=== PATIENT | female | born 1985 | race Caucasian/White ===

== ENCOUNTER 2016-06-05 12:22 | Emergency (ER) | payer MEDICAID, OTHER ==
[~2016-06-05] VITALS: Ht 154.9 cm; Wt 65.9 kg
[~2016-06-05 12:22] MED LIST: CYCL-36 PO; DICL50 PO
[2016-06-05 12:25] VITALS: BP 140/92; PULSE 84; RESP 14; TEMP 98.4; O2SAT 96
--- NOTE | 2016-06-05 13:55 | PD ---
HPI Chief Complaint: Skin Problem Time Seen by Provider: 13:53 Travel History International Travel<30 days: No Contact w/Intl Traveler<30days: No Traveled to known affect area: No History of Present Illness HPI 31-year-old female presents to the emergency room for evaluation of non-itchy, nonpainful rash to her entire body that began yesterday. Patient states she was having fevers as high as 104 over the past 3 days that were not coming down significantly with Tylenol Motrin. Fever finally broke yesterday and she has not had any today. At onset of fever she also had moderate sore throat. Denies any other cough or cold symptoms. Rash started about 4 days after fever. 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 She reports that they share drinks occasionally. PFSH Past Medical History Anxiety: Yes Depression: No Diminished Hearing: No Immunizations Current: Yes Tetanus Vaccination: < 5 Years Influenza Vaccination: No ?: Not Menopausal: Yes Past Surgical History Appendectomy: Yes Section: Yes (X 2) Gynecologic Surgery: Yes Hysterectomy: Yes Tonsillectomy: Yes Social History Alcohol Use: Yes Tobacco Use: Yes (1/2 PACK DAILY) Substance Use: No (RECOVERY SINCE 02/18/2008 BENZO ADDICTION PREV) Allergies-Medications (Allergen,Severity, Reaction): Coded Allergies: Amoxicillin (Verified Allergy, Severe, THROAT CLOSES, 06/05/16) Uncoded Allergies: NO NARCOTICS PT IN RECOVERY (Allergy, Unknown, 05/19/12) Reported Meds & Prescriptions Reported Meds & Active Scripts Active Active Prescriptions or Reported Medications Unobtainable Review of Systems Except as stated in HPI: all other systems reviewed are Neg Physical Exam Narrative GENERAL: Well-nourished, well-developed female in no acute distress. Afebrile. Ambulatory. SKIN: Warm and dry. Slightly raised maculopapular rash throughout entire body, most prominent on the abdomen in bilateral upper extremities. HEAD: Normocephalic. EYES: No scleral icterus. No injection or drainage. ENT: Mucosa pink and moist. Mild to moderate erythema without edema or exudates. No uvular edema. No uvular, palatal, or tonsillar deviation. Airway patent. Nasal turbinates appear normal without nasal blood, purulent drainage or septal hematoma. NECK: Supple, trachea midline. No JVD or lymphadenopathy. CARDIOVASCULAR: Regular rate and rhythm without murmurs, gallops, or rubs. RESPIRATORY: Breath sounds equal bilaterally. No accessory muscle use. Data Data Last Documented VS Vital Signs Date Time Temp Pulse Resp B/P Pulse Ox O2 Delivery O2 Flow Rate FiO2 06/05/16 12:25 98.4 84 14 140/92 96 Room Air Orders Monoscreen (06/05/16 13:28) Group A Rapid Strep Screen (06/05/16 13:28) Strep Culture (Group A) (06/05/16 13:40) Labs Laboratory Tests Test 06/05/16 13:40 Monoscreen NEG MDM Medical Decision Making Medical Screen Exam Complete: Yes Emergency Medical Condition: Yes Medical Record Reviewed: Yes Differential Diagnosis Scarlet fever versus viral exanthem versus mononucleosis Narrative Course 31-year-old female presents to the emergency room for evaluation of non-itchy, nonpainful, red, raised rash that has been present for the past 2 days. Patient had sore throat and fever prior to onset of symptoms. The symptoms have essentially resolved. She reports knowing someone with mononucleosis and works with children. Physical exam reveals slightly raised maculopapular rash throughout body most prominent on the abdomen. Rapid strep is negative. [place] screen is negative. Likely viral exanthem. Patient discharged with instructions to follow up with primary care physician and return for worsening symptoms. She understands and agrees to this plan. Diagnosis Primary Impression: Viral exanthem, unspecified Referrals: Primary Care Physician Patient Instructions: General Instructions, Viral Exanthem (ED) Additional Instructions: Rest and drink plenty of fluids. Take ibuprofen with food as directed, as needed for fever and pain. Follow-up with a primary care physician. Return to the emergency room for worsening symptoms. Scripts Unable to Obtain Active Prescriptions or Reported Meds Disposition: 01 DISCHARGE HOME Condition: Stable Jeanna Valdovinos Jun 05, 2016 13:55
== END 2016-06-05 14:54 | disposition home or self-care (01) ==
LOC: NEPB 12:22
DX: B09 Unspecified viral infection characterized by skin and mucous membrane lesions (principal); F17.200 Nicotine dependence, unspecified, uncomplicated; Z86.59 Personal history of other mental and behavioral disorders
CPT/HCPCS: 86308; 87081; 87880; 99283

== ENCOUNTER 2016-12-02 02:19 | Emergency (ER) | payer MEDICAID ==
[~2016-12-02] VITALS: Ht 154.9 cm; Wt 65.5 kg
[2016-12-02 02:22] VITALS: BP 110/75; PULSE 94; RESP 18; TEMP 97.6; O2SAT 98
[2016-12-02] MEDS ORDERED: DIAZ10 PO (02:33)
[2016-12-02] MEDS ORDERED: TRAM50TA PO (02:33)
[2016-12-02] MEDS ORDERED: SODIUM CHLORIDE 0.9% FLUSH 10 ML FLUSH IVF PRN (02:45)
--- NOTE | 2016-12-02 02:56 | PD ---
HPI Chief Complaint: Medical Clearance Time Seen by Provider: 02:41 Travel History International Travel<30 days: No Contact w/Intl Traveler<30days: No Traveled to known affect area: No History of Present Illness HPI Patient is a 31 year old female who presents to ER with EVAC as a Aparicio's Act. Patient reports that today is the one year, 6 month anniversary of her twin sisters as she committed suicide. Reports that her cousin called her today, asking her to write lyrtics on how she was feeling. Patient reports that she did write the lyrics which related to suicidal idealizations. Aparicio act states "message was very suggestive, but no direct threats of suicide's were observed." Patient denies suicidal or homicidal idealizations. Patient does admit to taking 4-10 mg Valium as well as 2- 25 mg tramadol today over the course of 9 hours. Reports that she is prescribed these medications and was told may have taken them a little to early. Reports that she has 2 children at home, reports no suicidal evaluations that time. Reports that this is all a misunderstanding. PFSH Past Medical History Anxiety: Yes Depression: No Diminished Hearing: No Immunizations Current: Yes Tetanus Vaccination: Unknown Influenza Vaccination: Yes ?: Not Menopausal: Yes Past Surgical History Appendectomy: Yes Section: Yes (X 2) Gynecologic Surgery: Yes Hysterectomy: Yes Tonsillectomy: Yes Social History Alcohol Use: Yes (OCCASSIONALLY) Tobacco Use: Yes (1/2 PACK DAILY) Substance Use: No (RECOVERY SINCE 02/18/2008 BENZO ADDICTION PREV) Allergies-Medications (Allergen,Severity, Reaction): Coded Allergies: Amoxicillin (Verified Allergy, Severe, THROAT CLOSES, 12/02/16) Avelox (Verified Allergy, Severe, 12/02/16) Uncoded Allergies: NO NARCOTICS PT IN RECOVERY (Allergy, Unknown, 05/19/12) Reported Meds & Prescriptions Reported Meds & Active Scripts Active Reported Tramadol (Tramadol HCl) 50 Mg Tab 25 Mg PO Q6H PRN Valium (Diazepam) 10 Mg Tab 10 Mg PO BID PRN Review of Systems General / Constitutional: No: Fever Eyes: No: Visual changes HENT: No: Headaches Cardiovascular: No: Chest Pain or Discomfort Respiratory: No: Shortness of Breath Gastrointestinal: No: Abdominal Pain Genitourinary: No: Dysuria Musculoskeletal: No: Pain Skin: No Rash Neurologic: No: Weakness Psychiatric: Positive: Depression, No: Suicidal Ideations, Homicidal Ideation Endocrine: No: Polydipsia Hematologic/Lymphatic: No: Easy Bruising Physical Exam Narrative GENERAL: No acute distress, nontoxic SKIN: Focused skin assessment warm/dry. HEAD: Atraumatic. Normocephalic. EYES: Pupils equal and round. No scleral icterus. No injection or drainage. ENT: No nasal bleeding or discharge. Mucous membranes pink and moist. NECK: Trachea midline. No JVD. CARDIOVASCULAR: Regular rate and rhythm. No murmur appreciated. RESPIRATORY: No accessory muscle use. Clear to auscultation. Breath sounds equal bilaterally. GASTROINTESTINAL: Abdomen soft, non-tender, nondistended. Hepatic and splenic margins not palpable. MUSCULOSKELETAL: No obvious deformities. No clubbing. No cyanosis. No edema. NEUROLOGICAL: Awake and alert. No obvious cranial nerve deficits. Motor grossly within normal limits. Normal speech. PSYCHIATRIC: Depressed mood Data Data Last Documented VS Vital Signs Date Time Temp Pulse Resp B/P Pulse Ox O2 Delivery O2 Flow Rate FiO2 12/02/16 03:43 78 18 107/72 98 Room Air 12/02/16 02:22 97.6 Orders Complete Blood Count With Diff (12/02/16 02:41) Comprehensive Metabolic Panel (12/02/16 02:41) Urinalysis - C+S If Indicated (12/02/16 02:41) Oximetry (12/02/16 02:41) Iv Access Insert/Monitor (12/02/16 02:41) Ecg Monitoring (12/02/16 02:41) Psych Screen (12/02/16 02:41) Sodium Chloride 0.9% Flush (Ns Flush) (12/02/16 02:45) Drug Screen, Random Urine (12/02/16 02:41) Alcohol (Ethanol) (12/02/16 02:41) Salicylates (Aspirin) (12/02/16 02:41) Tylenol (Acetaminophen) (12/02/16 02:41) Ed Urine Pregnancytest Poc (12/02/16 02:42) Labs Laboratory Tests Test 12/02/16 02:50 White Blood Count 6.7 TH/MM3 Red Blood Count 4.44 MIL/MM3 Hemoglobin 14.1 GM/DL Hematocrit 40.4 % Mean Corpuscular Volume 91.1 FL Mean Corpuscular Hemoglobin 31.7 PG Mean Corpuscular Hemoglobin 34.8 % Concent Red Cell Distribution Width 12.8 % Platelet Count 259 TH/MM3 Mean Platelet Volume 8.2 FL Neutrophils (%) (Auto) 43.6 % Lymphocytes (%) (Auto) 45.4 % Monocytes (%) (Auto) 4.8 % Eosinophils (%) (Auto) 5.1 % Basophils (%) (Auto) 1.1 % Neutrophils # (Auto) 2.9 TH/MM3 Lymphocytes # (Auto) 3.1 TH/MM3 Monocytes # (Auto) 0.3 TH/MM3 Eosinophils # (Auto) 0.3 TH/MM3 Basophils # (Auto) 0.1 TH/MM3 CBC Comment DIFF FINAL Differential Comment Urine Color LIGHT-YELLOW Urine Turbidity CLEAR Urine pH 6.5 Urine Specific [place] 1.003 Urine Protein NEG mg/dL Urine Glucose (UA) NEG mg/dL Urine Ketones NEG mg/dL Urine Occult Blood NEG Urine Nitrite NEG Urine Bilirubin NEG Urine Urobilinogen LESS THAN 2.0 MG/DL Urine Leukocyte Esterase NEG Urine RBC LESS THAN 1 /hpf Urine WBC LESS THAN 1 /hpf Urine Bacteria RARE /hpf Microscopic Urinalysis Comment CULT NOT INDICATED Sodium Level 140 MEQ/L Potassium Level 3.7 MEQ/L Chloride Level 107 MEQ/L Carbon Dioxide Level 25.6 MEQ/L Anion Gap 7 MEQ/L Blood Urea Nitrogen 11 MG/DL Creatinine 0.77 MG/DL Estimat Glomerular Filtration 86 ML/MIN Rate Random Glucose 87 MG/DL Calcium Level 8.6 MG/DL Total Bilirubin 0.2 MG/DL Aspartate Amino Transf 18 U/L (AST/SGOT) Alanine Aminotransferase 23 U/L (ALT/SGPT) Alkaline Phosphatase 97 U/L Total Protein 8.0 GM/DL Albumin 4.2 GM/DL Salicylates Level 1.9 MG/DL Urine Opiates Screen NEG Acetaminophen Level LESS THAN 2.0 MCG/ML Urine Barbiturates Screen NEG Urine Amphetamines Screen NEG Urine Benzodiazepines Screen POS Urine Cocaine Screen NEG Urine Cannabinoids Screen NEG Ethyl Alcohol Level 214 MG/DL MDM Medical Decision Making Medical Screen Exam Complete: Yes Emergency Medical Condition: Yes Interpretation(s) Vital Signs Date Time Temp Pulse Resp B/P Pulse Ox O2 Delivery O2 Flow Rate FiO2 12/02/16 02:22 97.6 94 18 110/75 98 Differential Diagnosis Suicidal evaluations, drug overdose, electrolyte abnormality,depression Narrative Course Patient is a 31-year-old female who presents to emergency room via EVAC as she was placed under Aparicio act for making suggestions of suicidal idealizations. Patient was placed on a toe closing machine tender upon arrival to ER. Tox screens ordered. Plan to observe in ER. Once medically cleared, will have patient seen by psych screener Kriss Brown DO Dec 02, 2016 02:56
[2016-12-02 03:00] VITALS: RESP 18; O2SAT 100
[2016-12-02 03:20] LABS: AMPHETAMINE, URINE NEG (NEG); BARBITURATES, URINE NEG (NEG); COCAINE, URINE NEG (NEG)
[2016-12-02 03:21] LABS: BACTERIA, URINE RARE /hpf; BLOOD, URINE NEG (NEG); GLUCOSE,URINE NEG (NEG); KETONE, URINE NEG (NEG); NITRITE,URINE NEG (NEG); PH, URINE 6.5 (5.0-8.5); URINE COLOR LIGHT-YELLOW (YELLW/STRAW)
[2016-12-02 03:22] LABS: AUTOMATED NEUTROPHIL # 2.9 TH/MM3 (1.8-7.7); BASOPHIL # 0.1 TH/MM3 (0-0.2); BASOPHIL % 1.1 % (0.0-2.0); COMMENT (UR) CULT NOT INDICATED; CULTURE IF INDICATED CULT NOT INDICATED; EOSINOPHIL # 0.3 TH/MM3 (0-0.4); EOSINOPHIL % 5.1 % (0.0-4.0); HEMATOCRIT 40.4 % (35.0-46.0); HEMO FLAGS DIFF FINAL; LYMPH % 45.4 % (9.0-44.0); LYMPHOCYTE # 3.1 TH/MM3 (1.0-4.8); MEAN CELL VOLUME 91.1 FL (80.0-100.0); MEAN CORPUSCULAR HEMOGLOBIN 31.7 PG (27.0-34.0); MEAN CORPUSCULAR HGB CONC 34.8 % (32.0-36.0); MONO % 4.8 % (0.0-8.0); NEUT % 43.6 % (16.0-70.0); PLATELET COUNT 259 TH/MM3 (150-450); RED BLOOD COUNT 4.44 MIL/MM3 (4.00-5.30); RED CELL DISTRIBUTION WIDTH 12.8 % (11.6-17.2); WHITE BLOOD COUNT 6.7 TH/MM3 (4.0-11.0)
[2016-12-02 03:42] LABS: ANION GAP 7 MEQ/L (5-15)
[2016-12-02 03:43] VITALS: BP 107/72; PULSE 78; RESP 18; O2SAT 98
[2016-12-02 04:16] LABS: ALKALINE PHOSPHATASE 97 U/L (45-117); ALT (GPT) 23 U/L (10-53); AST (GOT) 18 U/L (15-37); BICARBONATE 25.6 MEQ/L (21.0-32.0); BLOOD UREA NITROGEN 11 MG/DL (7-18); CHLORIDE 107 MEQ/L (98-107); GLOMERULAR FILTRATION RATE 86 ML/MIN (>89); POTASSIUM 3.7 MEQ/L (3.5-5.1); SODIUM (NA) 140 MEQ/L (136-145); TOTAL BILIRUBIN ADULT 0.2 MG/DL (0.2-1.0)
[2016-12-02 04:17] LABS: ACETAMINOPHEN LESS THAN 2.0 MCG/ML (10.0-30.0)
[2016-12-02 06:59] VITALS: BP 103/57; PULSE 92; RESP 16; O2SAT 98
[2016-12-02 10:01] VITALS: BP 104/70; PULSE 79; RESP 18; TEMP 98.6; O2SAT 97
[2016-12-02 11:13] VITALS: BP 104/70; PULSE 79; RESP 18; TEMP 98.6; O2SAT 97
--- NOTE | 2016-12-02 19:00 | PD ---
History of Present Illness Chief Complaint: Medical Clearance Time Seen by Provider: 18:00 Travel History International Travel<30 Days: No Contact w/Intl Traveler<30days: No Known affected area: No Legal Status Legal Status: Aparicio Act Aparicio Act Signed By: Lalito Heart History of Present Illness: This is a 31-year-old female brought in under a Aparicio act for apparently sending someone a Facebook message indicating she had taken a "bunch of pills" in a suicide attempt. The patient also told law enforcement officers that she was depressed because her twin sister committed suicide last year. Although the patient denied being suicidal at the time of the officers presence, she did report depression over the suicide of her sister and that she had consumed 4 Valium tablets and 2 tramadol pills patient was also noted to be positive for alcohol at the time she did this. Her text messages on Facebook continued to talk about suicide but again the patient was denying this to law enforcement. Upon interview, the patient is no longer intoxicated. She denies any suicidal or homicidal ideation, plan or intent. She is calm, pleasant and cooperative. She has no psychotic symptoms and her cognition is intact. She is verbally jacqueline for safety. She is competent to do so. PFSH Past Medical History Anxiety: Yes Depression: No Diminished Hearing: No Immunizations Current: Yes Tetanus Vaccination: Unknown Influenza Vaccination: Yes ?: Not Menopausal: Yes Past Surgical History Appendectomy: Yes Section: Yes (X 2) Gynecologic Surgery: Yes Hysterectomy: Yes Tonsillectomy: Yes Psychiatric History Psychiatric History Hx Psychiatric Treatment: None History of Inpatient Treatment: No Guns or firearms in home: No Social History Hx Alcohol Use: Yes (OCCASSIONALLY) Hx Tobacco Use: Yes (1/2 PACK DAILY) Hx Substance Use: No Substance Use Type: Benzos (Valium,Xanax) Other Substances Used: valium is for anxiety Hx of Substance Use Treatment: No Allergies-Medications (Allergen,Severity, Reaction): Coded Allergies: Amoxicillin (Verified Allergy, Severe, THROAT CLOSES, 12/02/16) Avelox (Verified Allergy, Severe, 12/02/16) Uncoded Allergies: NO NARCOTICS PT IN RECOVERY (Allergy, Unknown, 05/19/12) Reported Meds & Prescriptions Reported Meds & Active Scripts Active Reported Tramadol (Tramadol HCl) 50 Mg Tab 25 Mg PO Q6H PRN Valium (Diazepam) 10 Mg Tab 10 Mg PO BID PRN Review of Systems Except as stated in HPI: all other systems reviewed are Neg Exam Alert: Yes [place]: Person, Place, Date, Situation Mood: Calm Affect: Appropriate Speech: Clear, Logical Eye Contact: Normal Memory Intact: Immediate, Recent, Remote Insight/Judgement Adequate MDM Medical Decision Making Medical Record Reviewed: Yes Assessment/Plan This is a 31-year-old female who became intoxicated while grieving for the loss of her twin sister, 1 year ago. Patient obviously became depressed and likely suicidal. This physician spoke with the patient's nurse and reviewed her text messages on [employer]. The patient also admits to taking medications inappropriately, including tramadol and Valium. However, at this time she is not intoxicated and she is competent to contract for safety. This physician feels it would be counter therapeutic to antagonize her further and instead encouraged her to obtain help in the way of therapy and possibly antidepressant medication. As the patient is verbally jacqueline for safety, this physician feels she does not qualify for Aparicio act or inpatient psychiatric hospitalization at this time. Orders Complete Blood Count With Diff (12/02/16 02:41) Comprehensive Metabolic Panel (12/02/16 02:41) Urinalysis - C+S If Indicated (12/02/16 02:41) Oximetry (12/02/16 02:41) Iv Access Insert/Monitor (12/02/16 02:41) Ecg Monitoring (12/02/16 02:41) Psych Screen (12/02/16 02:41) Sodium Chloride 0.9% Flush (Ns Flush) (12/02/16 02:45) Drug Screen, Random Urine (12/02/16 02:41) Alcohol (Ethanol) (12/02/16 02:41) Salicylates (Aspirin) (12/02/16 02:41) Tylenol (Acetaminophen) (12/02/16 02:41) Ed Urine Pregnancytest Poc (12/02/16 02:42) Diet Regular Basic (12/02/16 Lunch) Diet Regular Basic (12/02/16 Dinner) Results Vital Signs Date Time Temp Pulse Resp B/P Pulse Ox O2 Delivery O2 Flow Rate FiO2 12/02/16 11:13 98.6 79 18 104/70 97 12/02/16 10:01 98.6 79 18 104/70 97 Room Air 12/02/16 06:59 92 16 103/57 98 Room Air 12/02/16 03:43 78 18 107/72 98 Room Air 12/02/16 03:00 18 100 Room Air 12/02/16 02:22 97.6 94 18 110/75 98 Laboratory Tests Test 12/02/16 02:50 White Blood Count 6.7 Red Blood Count 4.44 Hemoglobin 14.1 Hematocrit 40.4 Mean Corpuscular Volume 91.1 Mean Corpuscular Hemoglobin 31.7 Mean Corpuscular Hemoglobin 34.8 Concent Red Cell Distribution Width 12.8 Platelet Count 259 Mean Platelet Volume 8.2 Neutrophils (%) (Auto) 43.6 Lymphocytes (%) (Auto) 45.4 Monocytes (%) (Auto) 4.8 Eosinophils (%) (Auto) 5.1 Basophils (%) (Auto) 1.1 Neutrophils # (Auto) 2.9 Lymphocytes # (Auto) 3.1 Monocytes # (Auto) 0.3 Eosinophils # (Auto) 0.3 Basophils # (Auto) 0.1 CBC Comment DIFF FINAL Differential Comment Urine Color LIGHT-YELLOW Urine Turbidity CLEAR Urine pH 6.5 Urine Specific [place] 1.003 Urine Protein NEG Urine Glucose (UA) NEG Urine Ketones NEG Urine Occult Blood NEG Urine Nitrite NEG Urine Bilirubin NEG Urine Urobilinogen LESS THAN 2.0 Urine Leukocyte Esterase NEG Urine RBC LESS THAN 1 Urine WBC LESS THAN 1 Urine Bacteria RARE Microscopic Urinalysis Comment CULT NOT INDICATED Sodium Level 140 Potassium Level 3.7 Chloride Level 107 Carbon Dioxide Level 25.6 Anion Gap 7 Blood Urea Nitrogen 11 Creatinine 0.77 Estimat Glomerular Filtration 86 Rate Random Glucose 87 Calcium Level 8.6 Total Bilirubin 0.2 Aspartate Amino Transf 18 (AST/SGOT) Alanine Aminotransferase 23 (ALT/SGPT) Alkaline Phosphatase 97 Total Protein 8.0 Albumin 4.2 Salicylates Level 1.9 Urine Opiates Screen NEG Acetaminophen Level LESS THAN 2.0 Urine Barbiturates Screen NEG Urine Amphetamines Screen NEG Urine Benzodiazepines Screen POS Urine Cocaine Screen NEG Urine Cannabinoids Screen NEG Ethyl Alcohol Level 214 Diagnosis Primary Impression: Adjustment disorder with mixed disturbance of emotions and conduct Additional Impression: Alcohol abuse Departure Forms: Tests/Procedures Patient Instructions: General Instructions, Depression (ED), Grief and Loss (ED ), Abuse of Alcohol (ED) Additional Instructions: Please return to ED if your symptoms reappear Disposition: 01 DISCHARGE HOME Condition: Stable Problem Qualifiers Jorge Lerma MD Dec 02, 2016 19:00
== END 2016-12-02 18:57 | disposition home or self-care (01) ==
LOC: NEPE 02:19 → NEPJ 18:57
DX: F43.25 Adjustment disorder with mixed disturbance of emotions and conduct (principal); F41.9 Anxiety disorder, unspecified; F17.210 Nicotine dependence, cigarettes, uncomplicated; F10.10 Alcohol abuse, uncomplicated
CPT/HCPCS: 80053; 80307; 81001; 84703; 85025; 99283

== ENCOUNTER 2017-03-10 00:39 | Emergency (ER) | payer SELFPAY ==
[~2017-03-10] VITALS: Ht 165.1 cm; Wt 75.0 kg
[~2017-03-10 00:39] MED LIST changes: -CYCL-36 PO; +DIAZ10 PO; -DICL50 PO; +TRAM50TA PO
[2017-03-10 00:51] VITALS: BP 115/77; PULSE 104; RESP 18; TEMP 98.5; O2SAT 96
[2017-03-10 00:56] VITALS: BP 115/77; PULSE 104; RESP 18; TEMP 98.5; O2SAT 96
--- NOTE | 2017-03-10 01:03 | PD ---
HPI Chief Complaint: Alcohol/Drug Intoxication Time Seen by Provider: 00:51 Travel History International Travel<30 days: No Contact w/Intl Traveler<30days: No Traveled to known affect area: No History of Present Illness HPI The patient is a 31-year-old female who presents to the emergency department via police as a Aparicio act. According to the police affidavit the patient made statements that she wanted to run in a traffic on [address] According to the police affidavit the patient was aggressive, loud, and resistant and stated she was intoxicated. The patient was placed under a Aparicio act. She denies any suicidal ideation, homicidal ideation, hallucinations, or delusions. She denies any associated illicit drug use. She does state that her identical twin sister last year and April, she takes 9 as needed for anxiety at night. However, she denies any suicidal or homicidal ideation. She does admit to drinking alcohol tonight, son unable to quantify the amount of wine she drank. She denies any history of chronic psychiatric disorders. Symptoms are mild to moderate, possibly exacerbated by alcohol, and there are no current alleviating factors. PFSH Past Medical History Anxiety: Yes Depression: No Diminished Hearing: No Immunizations Current: Yes ?: Not Menopausal: Yes Past Surgical History Appendectomy: Yes Section: Yes (X 2) Gynecologic Surgery: Yes Hysterectomy: Yes Tonsillectomy: Yes Social History Alcohol Use: Yes (OCCASSIONALLY) Tobacco Use: Yes (1/2 PACK DAILY) Substance Use: No Allergies-Medications (Allergen,Severity, Reaction): Coded Allergies: amoxicillin (Unverified Allergy, Severe, THROAT CLOSES, 01/17/17) moxifloxacin (Unverified Allergy, Severe, 01/17/17) Uncoded Allergies: NO NARCOTICS PT IN RECOVERY (Allergy, Unknown, 05/19/12) Reported Meds & Prescriptions Reported Meds & Active Scripts Active Reported Tramadol (Tramadol HCl) 50 Mg Tab 25 Mg PO Q6H PRN Valium (Diazepam) 10 Mg Tab 10 Mg PO BID PRN Review of Systems Except as stated in HPI: all other systems reviewed are Neg General / Constitutional: No: Fever Cardiovascular: No: Chest Pain or Discomfort Respiratory: No: Shortness of Breath Gastrointestinal: No: Nausea, Vomiting, Abdominal Pain Psychiatric: Positive: Substance Abuse (alcohol use tonight), No: Depression, Suicidal Ideations, Disorder of Thought, Mood Disorder, Homicidal Ideation Physical Exam Narrative GENERAL: Awake, alert, somewhat intoxicated 31 year-old female who appears her stated age is in no acute respiratory distress. SKIN: Focused skin assessment warm/dry. HEAD: Atraumatic. Normocephalic. EYES: Pupils equal and round. No scleral icterus. No injection or drainage. ENT: No nasal bleeding or discharge. Mucous membranes pink and moist. NECK: Trachea midline. No JVD. CARDIOVASCULAR: Regular rate and rhythm. No murmur appreciated. RESPIRATORY: No accessory muscle use. Clear to auscultation. Breath sounds equal bilaterally. GASTROINTESTINAL: Abdomen soft, non-tender, nondistended. MUSCULOSKELETAL: No obvious deformities. No clubbing. No cyanosis. No edema. NEUROLOGICAL: Awake and alert. No obvious cranial nerve deficits. Motor grossly within normal limits. Normal speech. Nonfocal. Oriented 3. PSYCHIATRIC: Appears intoxicated. Data Data Last Documented VS Vital Signs Date Time Temp Pulse Resp B/P (MAP) Pulse Ox O2 Delivery O2 Flow Rate FiO2 03/10/17 00:56 98.5 104 18 115/77 (90) 96 Room Air Orders Orders Complete Blood Count With Diff (03/10/17 00:59) Comprehensive Metabolic Panel (03/10/17 00:59) Psych Screen (03/10/17 00:59) Drug Screen, Random Urine (03/10/17 00:59) Alcohol (Ethanol) (03/10/17 00:59) Labs Laboratory Tests Test 03/10/17 01:00 03/10/17 01:05 Urine Opiates Screen NEG Urine Barbiturates Screen NEG Urine Amphetamines Screen NEG Urine Benzodiazepines Screen POS Urine Cocaine Screen NEG Urine Cannabinoids Screen NEG White Blood Count 7.1 TH/MM3 Red Blood Count 4.37 MIL/MM3 Hemoglobin 14.0 GM/DL Hematocrit 41.1 % Mean Corpuscular Volume 94.1 FL Mean Corpuscular Hemoglobin 32.0 PG Mean Corpuscular Hemoglobin Concent 34.0 % Red Cell Distribution Width 13.6 % Platelet Count 224 TH/MM3 Mean Platelet Volume 7.9 FL Neutrophils (%) (Auto) 45.2 % Lymphocytes (%) (Auto) 43.8 % Monocytes (%) (Auto) 5.0 % Eosinophils (%) (Auto) 4.6 % Basophils (%) (Auto) 1.4 % Neutrophils # (Auto) 3.2 TH/MM3 Lymphocytes # (Auto) 3.1 TH/MM3 Monocytes # (Auto) 0.4 TH/MM3 Eosinophils # (Auto) 0.3 TH/MM3 Basophils # (Auto) 0.1 TH/MM3 CBC Comment DIFF FINAL Differential Comment Blood Urea Nitrogen 9 MG/DL Creatinine 0.78 MG/DL Random Glucose 99 MG/DL Total Protein 7.8 GM/DL Albumin 4.2 GM/DL Calcium Level 8.5 MG/DL Alkaline Phosphatase 92 U/L Aspartate Amino Transf (AST/SGOT) 27 U/L Alanine Aminotransferase (ALT/SGPT) 35 U/L Total Bilirubin 0.3 MG/DL Sodium Level 144 MEQ/L Potassium Level 3.6 MEQ/L Chloride Level 112 MEQ/L Carbon Dioxide Level 22.4 MEQ/L Anion Gap 10 MEQ/L Estimat Glomerular Filtration Rate 85 ML/MIN Ethyl Alcohol Level 265 MG/DL MDM Medical Decision Making Medical Screen Exam Complete: Yes Emergency Medical Condition: Yes Medical Record Reviewed: Yes Interpretation(s) Laboratory Tests Test 03/10/17 01:00 03/10/17 01:05 Urine Opiates Screen NEG Urine Barbiturates Screen NEG Urine Amphetamines Screen NEG Urine Benzodiazepines Screen POS Urine Cocaine Screen NEG Urine Cannabinoids Screen NEG White Blood Count 7.1 TH/MM3 Red Blood Count 4.37 MIL/MM3 Hemoglobin 14.0 GM/DL Hematocrit 41.1 % Mean Corpuscular Volume 94.1 FL Mean Corpuscular Hemoglobin 32.0 PG Mean Corpuscular Hemoglobin Concent 34.0 % Red Cell Distribution Width 13.6 % Platelet Count 224 TH/MM3 Mean Platelet Volume 7.9 FL Neutrophils (%) (Auto) 45.2 % Lymphocytes (%) (Auto) 43.8 % Monocytes (%) (Auto) 5.0 % Eosinophils (%) (Auto) 4.6 % Basophils (%) (Auto) 1.4 % Neutrophils # (Auto) 3.2 TH/MM3 Lymphocytes # (Auto) 3.1 TH/MM3 Monocytes # (Auto) 0.4 TH/MM3 Eosinophils # (Auto) 0.3 TH/MM3 Basophils # (Auto) 0.1 TH/MM3 CBC Comment DIFF FINAL Differential Comment Blood Urea Nitrogen 9 MG/DL Creatinine 0.78 MG/DL Random Glucose 99 MG/DL Total Protein 7.8 GM/DL Albumin 4.2 GM/DL Calcium Level 8.5 MG/DL Alkaline Phosphatase 92 U/L Aspartate Amino Transf (AST/SGOT) 27 U/L Alanine Aminotransferase (ALT/SGPT) 35 U/L Total Bilirubin 0.3 MG/DL Sodium Level 144 MEQ/L Potassium Level 3.6 MEQ/L Chloride Level 112 MEQ/L Carbon Dioxide Level 22.4 MEQ/L Anion Gap 10 MEQ/L Estimat Glomerular Filtration Rate 85 ML/MIN Ethyl Alcohol Level 265 MG/DL Differential Diagnosis Differential diagnosis includes alcohol intoxication, substance induced mood disorder, depressive disorder NOS, adjustment reaction, stress reaction, bipolar affective disorder. Narrative Course Labs are drawn and sent. Psychiatric evaluation was ordered. Tox screen is positive for benzodiazepines. Alcohol level is elevated at 265. Patient is medically clear to be evaluated by psychiatry. Disposition as per psych. Diagnosis Primary Impression: Substance induced mood disorder Additional Impression: Alcohol intoxication Qualified Codes: F10.920 - Alcohol use, unspecified with intoxication, uncomplicated Condition: Stable Richard Akers MD Mar 10, 2017 01:03
[2017-03-10 01:24] LABS: AUTOMATED NEUTROPHIL # 3.2 TH/MM3 (1.8-7.7); BASOPHIL # 0.1 TH/MM3 (0-0.2); BASOPHIL % 1.4 % (0.0-2.0); EOSINOPHIL # 0.3 TH/MM3 (0-0.4); EOSINOPHIL % 4.6 % (0.0-4.0); HEMATOCRIT 41.1 % (35.0-46.0); HEMO FLAGS DIFF FINAL; LYMPH % 43.8 % (9.0-44.0); LYMPHOCYTE # 3.1 TH/MM3 (1.0-4.8); MEAN CELL VOLUME 94.1 FL (80.0-100.0); NEUT % 45.2 % (16.0-70.0); PLATELET COUNT 224 TH/MM3 (150-450); RED BLOOD COUNT 4.37 MIL/MM3 (4.00-5.30); RED CELL DISTRIBUTION WIDTH 13.6 % (11.6-17.2); WHITE BLOOD COUNT 7.1 TH/MM3 (4.0-11.0)
[2017-03-10 01:36] LABS: ALT (GPT) 35 U/L (10-53); ANION GAP 10 MEQ/L (5-15); AST (GOT) 27 U/L (15-37); BICARBONATE 22.4 MEQ/L (21.0-32.0); BLOOD UREA NITROGEN 9 MG/DL (7-18); CHLORIDE 112 MEQ/L (98-107); GLOMERULAR FILTRATION RATE 85 ML/MIN (>89); POTASSIUM 3.6 MEQ/L (3.5-5.1); SODIUM (NA) 144 MEQ/L (136-145)
[2017-03-10 01:38] LABS: ALKALINE PHOSPHATASE 92 U/L (45-117); TOTAL BILIRUBIN ADULT 0.3 MG/DL (0.2-1.0)
[2017-03-10 01:55] LABS: ALCOHOL 265 MG/DL (0-5)
[2017-03-10 07:05] VITALS: BP 119/69; PULSE 80; RESP 16; O2SAT 98
[2017-03-10 12:36] VITALS: BP 110/65; PULSE 82; RESP 16; TEMP 98.2; O2SAT 98
[2017-03-10 18:17] VITALS: BP 116/77; PULSE 67; RESP 17; TEMP 98.6; O2SAT 97
[2017-03-10 22:06] VITALS: BP 105/59; PULSE 58; RESP 18; O2SAT 99
[2017-03-11 02:00] VITALS: BP 126/72; PULSE 57; RESP 17
[2017-03-11] MEDS ORDERED: FLUMAZENIL 0.5 MG/5 ML VIAL IV PUSH PRN (08:15)
[2017-03-11] MEDS ORDERED: LORazepam 1 MG TAB PO PRN (08:15)
[2017-03-11] MEDS ORDERED: LORazepam 2 MG/ML VIAL IV PUSH PRN ×4 (08:15)
[2017-03-11] MEDS ORDERED: LORazepam 2 MG TAB PO PRN (08:15)
[2017-03-11 08:38] VITALS: BP 135/90; PULSE 89; RESP 18; O2SAT 97
[2017-03-11] MEDS ORDERED: NICOTINE 21 MG/24 HR PATCH T-DERMAL ONE (10:45)
--- NOTE | 2017-03-11 12:35 | PD ---
Physical Exam Date Seen by Provider: Mar 11, 2017 Time Seen by Provider: 12:34 Narrative 31-year-old female previously Aparicio acted intoxicated who was medically cleared has been evaluated by psychiatric services and found to be psychiatrically stable for discharge. Patient is currently medically stable for discharge. Follow plan is as per psychiatrist. Please see their plan. Data Data Last Documented VS Vital Signs Date Time Temp Pulse Resp B/P (MAP) Pulse Ox O2 Delivery O2 Flow Rate FiO2 03/11/17 08:38 89 18 135/90 (105) 97 03/10/17 18:17 98.6 03/10/17 12:36 Nasal Cannula Orders Orders Complete Blood Count With Diff (03/10/17 00:59) Comprehensive Metabolic Panel (03/10/17 00:59) Psych Screen (03/10/17 00:59) Drug Screen, Random Urine (03/10/17 00:59) Alcohol (Ethanol) (03/10/17 00:59) Diet Regular Basic (03/10/17 Lunch) Diet Regular Basic (03/11/17 Breakfast) Alcohol Withdrawal Asmt-Ciwa ONCE (03/11/17 08:09) Flumazenil Inj (Romazicon Inj) (03/11/17 08:15) Lorazepam (Ativan) (03/11/17 08:15) Lorazepam Inj (Ativan Inj) (03/11/17 08:15) Lorazepam (Ativan) (03/11/17 08:15) Lorazepam Inj (Ativan Inj) (03/11/17 08:15) Lorazepam Inj (Ativan Inj) (03/11/17 08:15) Lorazepam Inj (Ativan Inj) (03/11/17 08:15) Diet Regular Basic (03/11/17 Lunch) Nicotine 21 Mg Patch.24 Hr (Habitrol 21 (03/11/17 10:45) Labs Laboratory Tests Test 03/10/17 01:00 03/10/17 01:05 Urine Opiates Screen NEG Urine Barbiturates Screen NEG Urine Amphetamines Screen NEG Urine Benzodiazepines Screen POS Urine Cocaine Screen NEG Urine Cannabinoids Screen NEG White Blood Count 7.1 TH/MM3 Red Blood Count 4.37 MIL/MM3 Hemoglobin 14.0 GM/DL Hematocrit 41.1 % Mean Corpuscular Volume 94.1 FL Mean Corpuscular Hemoglobin 32.0 PG Mean Corpuscular Hemoglobin Concent 34.0 % Red Cell Distribution Width 13.6 % Platelet Count 224 TH/MM3 Mean Platelet Volume 7.9 FL Neutrophils (%) (Auto) 45.2 % Lymphocytes (%) (Auto) 43.8 % Monocytes (%) (Auto) 5.0 % Eosinophils (%) (Auto) 4.6 % Basophils (%) (Auto) 1.4 % Neutrophils # (Auto) 3.2 TH/MM3 Lymphocytes # (Auto) 3.1 TH/MM3 Monocytes # (Auto) 0.4 TH/MM3 Eosinophils # (Auto) 0.3 TH/MM3 Basophils # (Auto) 0.1 TH/MM3 CBC Comment DIFF FINAL Differential Comment Blood Urea Nitrogen 9 MG/DL Creatinine 0.78 MG/DL Random Glucose 99 MG/DL Total Protein 7.8 GM/DL Albumin 4.2 GM/DL Calcium Level 8.5 MG/DL Alkaline Phosphatase 92 U/L Aspartate Amino Transf (AST/SGOT) 27 U/L Alanine Aminotransferase (ALT/SGPT) 35 U/L Total Bilirubin 0.3 MG/DL Sodium Level 144 MEQ/L Potassium Level 3.6 MEQ/L Chloride Level 112 MEQ/L Carbon Dioxide Level 22.4 MEQ/L Anion Gap 10 MEQ/L Estimat Glomerular Filtration Rate 85 ML/MIN Ethyl Alcohol Level 265 MG/DL [facility] Medical Record Reviewed: Yes Supervised Visit with DB: Yes Narrative Course 31-year-old female previously Aparicio acted intoxicated who was medically cleared has been evaluated by psychiatric services and found to be psychiatrically stable for discharge. Patient is currently medically stable for discharge. Follow plan is as per psychiatrist. Please see their plan. Diagnosis Primary Impression: Substance induced mood disorder Additional Impression: Alcohol intoxication Qualified Codes: F10.920 - Alcohol use, unspecified with intoxication, uncomplicated Patient Instructions: General Instructions Disposition: 01 DISCHARGE HOME Condition: Stable Pedro Schroeder Mar 11, 2017 12:35
--- NOTE | 2017-03-11 12:48 | PD.PSY.CON ---
Provisional Diagnosis Admission Date [place] I. Adjustment disorder with mixed disturbances of emotion and conduct f 43.25, alcohol abuse/intoxication F 10.129 History of Present Illness Service Psychiatry Consult Requested By EDMD Reason for Consult Markus caldwell Primary Care Physician Unknown HPI Patient is a 31-year-old white female comes here under Aparicio act by the [place] [employer] dated 03/09/17 11:58 PM. That document reviewed. Essentially states the patient's father contacted central dispatch to report that his daughter Delores Hoyos made statements that she wanted to run into traffic on [address] Upon arrival at residents Delores was not at the residents contact was made via cell phone and Delores reported that she was in route to residents with a man named "Ger" Ger stated that Delores jump in front of her truck so he stopped in assisted her Ger transported her back to her residence and dropped her off. Delores was verbally aggressive loud and resistant she stated that she was intoxicated stated that she knew she was going to be Aparicio acted" patient seen screened in the ED urine toxicology positive for benzodiazepines blood alcohol level of 280. Of interest patient had a similar episode about a year ago was seen screened by Dr. Lerma and released. At time her blood alcohol was also over 200. Of interest this is coming up on the anniversary of her twin sister killing herself by gunshot wound. There is also the drama related to her relationship with her father's ex - who is her stepmother. The father not having a new girlfriend and they ex stepmother feeling that the patient is been involved with that and has been this structured a properly at the patient's house. at the present time patient denies suicidality homicidality voices or visions acknowledges it was the alcohol speaking. Acknowledges that she cannot drink. Even though her drinking episodes are intermittent they are somewhat excessive. She does acknowledge having one DUI a number of years ago. At this time patient does not meet Markus criteria will lift Markus act as okay by psych for discharge with medical clearance stable. No Rx by me. Patient should follow-up with her tremor grief counselor. Consider AA meetings. Review of Systems Constitutional: DENIES: Diaphoretic episodes, Fatigue, Fever, Weight gain, Weight loss, Chills, Dizziness, Change in appetite, Night Sweats Endocrine: DENIES: Abnorml menstrual pattern, Heat/cold intolerance, Polydipsia , Polyuria, Polyphagia Eyes: DENIES: Blurred vision, Diplopia, Eye inflammation, Eye pain, Vision loss , Photosensitivity, Double Vision Ears, nose, mouth, throat: DENIES: Tinnitus, Hearing loss, Vertigo, Nasal discharge, Oral lesions, Throat pain, Hoarseness, Ear Pain, Running Nose, Epistaxis, Sinus Pain, Toothache, Odynophagia Respiratory: DENIES: Apneas, Cough, Snoring, Wheezing, Hemoptysis, Sputum production, Shortness of breath Cardiovascular: DENIES: Chest pain, Palpitations, Syncope, Dyspnea on Exertion , PND, Lower Extremity Edema, Orthopnea, Claudication Gastrointestinal: DENIES: Abdominal pain, Black stools, Bloody stools, Constipation, Diarrhea, Nausea, Vomiting, Difficulty Swallowing, Anorexia Genitourinary: DENIES: Abnormal vaginal bleeding, Dysmenorrhea, Dyspareunia, Sexual dysfunction, Urinary frequency, Urinary incontinence, Urgency, Hematuria , Dysuria, Nocturia, Vaginal discharge Musculoskeletal: DENIES: Joint pain, Muscle aches, Stiffness, Joint Swelling, Back pain, Neck pain Integumentary: DENIES: Abnormal pigmentation, Pruritus, Rash, Nail changes, Breast masses, Breast skin changes, Nipple discharge Hematologic/lymphatic: DENIES: Bruising, Lymphadenopathy Immunologic/allergic: DENIES: Eczema, Urticaria Neurologic: DENIES: Abnormal gait, Headache, Localized weakness, Paresthesias, Seizures, Speech Problems, Tremor, Poor Balance Psychiatric: DENIES: Anxiety, Confusion, Mood changes, Depression, Hallucinations, Agitation, Suicidal Ideation, Homicidal Ideation, Delusions Past Family Social History Coded Allergies: amoxicillin (Unverified Allergy, Severe, THROAT CLOSES, 03/11/17) Per pt. moxifloxacin (Unverified Allergy, Severe, 03/11/17) Per pt. Uncoded Allergies: NO NARCOTICS PT IN RECOVERY (Allergy, Unknown, 03/11/17) Per pt. Past Medical History Patient medically cleared ED Reported Medications Tramadol (Tramadol) 50 Mg Tab, 25 MG PO Q6H Y for PAIN, TAB 0 Refills 12/02/16 Diazepam (Valium) 10 Mg Tab, 10 MG PO BID Y for ANXIETY, TAB 0 Refills 12/02/16 Current Medications Medications (Trade) Dose Ordered Sig/New Route Start Time Stop Time Status Last Admin (Romazicon Inj) 0.2 mg Q1M PRN IV PUSH 03/11/17 08:15 (Ativan) 1 mg Q4H PRN PO 03/11/17 08:15 (Ativan Inj) 1 mg Q4H PRN IV PUSH 03/11/17 08:15 (Ativan) 2 mg Q2H PRN PO 03/11/17 08:15 (Ativan Inj) 2 mg Q2H PRN IV PUSH 03/11/17 08:15 (Ativan Inj) 2 mg Q1H PRN IV PUSH 03/11/17 08:15 (Ativan Inj) 2 mg Q15M PRN IV PUSH 03/11/17 08:15 Family Psych History May be history of depression and father's family Social History Patient has 2 children has had episodes of binge drinking Patient's Strengths (min. 2) Patient verbal cooperative able to access healthcare Physical Exam Patient seen screened and cleared in ED Vital Signs Vital Signs Date Time Temp Pulse Resp B/P (MAP) Pulse Ox O2 Delivery O2 Flow Rate FiO2 03/11/17 08:38 89 18 135/90 (105) 97 03/10/17 18:17 98.6 03/10/17 12:36 Nasal Cannula Mental Status Examination Appearance: Appropriate Consciousness: Alert Orientation: x4 Motor Activity: Normal gait Speech: Unremarkable Language: Adequate Fund of Knowledge: Adequate Attention and Concentration: Adequate Memory: Unremarkable Mood: Other (euthymic to mildly dysphoric) Affect: Other (good range and intensity) Thought Process & Associations: Intact Thought Content: Appropriate Hallucination Type: None Delusion Type: None Suicidal Ideation: No Suicidal Plan: No Suicidal Intention: No Homicidal Ideation: No Homicidal Plan: No Homicidal Intention: No Insight: Fair Judgment: Adequate Assessment & Plan Problem List: (1) Alcohol abuse with intoxication ICD Codes: F10.129 - Alcohol abuse with intoxication, unspecified (2) Adjustment disorder with mixed disturbance of emotions and conduct ICD Codes: F43.25 - Adjustment disorder with mixed disturbance of emotions and conduct Status: Acute Assessment & Plan Estimated LOS: days this time patient does not meet Aparicio criteria will lift Aparicio act. Is okay by psych for discharge or medically clear and stable. No Rx by me. Strongly referral [facility] act outpatient voluntary substance abuse assessment. Also patient to follow-up with her trauma grief counselor Discharge Planning See above Request HC Surrog/Guard Advoc?: No Tom Bishop MD Mar 11, 2017 12:48
== END 2017-03-11 12:50 | disposition home or self-care (01) ==
LOC: NEPE 00:39 → NEPJ 03-11 12:50
DX: F10.94 Alcohol use, unspecified with alcohol-induced mood disorder (principal); Y90.8 Blood alcohol level of 240 mg/100 ml or more
CPT/HCPCS: 80053; 80307; 85025; 99284

== ENCOUNTER 2017-07-14 21:14 | Emergency (ER) | payer SELFPAY ==
[~2017-07-14] VITALS: Ht 154.9 cm; Wt 59.0 kg
[2017-07-14 21:16] VITALS: BP 132/86; PULSE 96; RESP 16; TEMP 98.4; O2SAT 98
--- NOTE | 2017-07-14 21:48 | PD ---
HPI Chief Complaint: Injury Time Seen by Provider: 21:41 Travel History International Travel<30 days: No Contact w/Intl Traveler<30days: No Traveled to known affect area: No History of Present Illness HPI PATIENT STATES THAT SHE IS IN RECOVERY AND WOULD LIKE NOT TO RECEIVE ANY NARCOTICS. ALL:AMOXIL PATIENT STATES SHE MISSTEPPED AND FELL FORWARD ONTO STAIRS, FOOSH MECH, NOW C/O LEFT HAND/WRIST PAIN, SHARP, 5/10, WORSE WITH MOVEMENT NO GREAT ALLEVIATING FACTORS. FALL WAS WITNESSED AND SHE DID NOT HAVE LOC, BHT, CP/ABDPAIN/BACKPAIN/ N/V/D/PHOTOPHOBIA/ AND DID NOT HIT HER BACK EITHER. PFSH Past Medical History Anxiety: Yes Depression: No Diminished Hearing: No Immunizations Current: Yes ?: Not LMP: 2001 Menopausal: Yes Past Surgical History Appendectomy: Yes Section: Yes (X 2) Gynecologic Surgery: Yes Hysterectomy: Yes Tonsillectomy: Yes Social History Alcohol Use: Yes (OCCASSIONALLY) Tobacco Use: Yes (1/2 PACK DAILY) Substance Use: No Allergies-Medications (Allergen,Severity, Reaction): Coded Allergies: amoxicillin (Unverified Allergy, Severe, THROAT CLOSES, 07/14/17) Per pt. moxifloxacin (Unverified Allergy, Severe, 07/14/17) Per pt. Uncoded Allergies: NO NARCOTICS PT IN RECOVERY (Allergy, Unknown, 03/11/17) Per pt. Reported Meds & Prescriptions Reported Meds & Active Scripts Active Reported Valium (Diazepam) 10 Mg Tab 10 Mg PO BID PRN Review of Systems General / Constitutional: No: Fever Eyes: No: Visual changes HENT: No: Headaches Cardiovascular: No: Chest Pain or Discomfort Respiratory: No: Shortness of Breath Gastrointestinal: No: Abdominal Pain Genitourinary: No: Dysuria Musculoskeletal: Positive: Pain (LEFT HAND/WRST) Skin: No Rash Neurologic: No: Weakness Psychiatric: No: Depression Endocrine: No: Polydipsia Hematologic/Lymphatic: No: Easy Bruising Physical Exam Narrative GENERAL: SKIN: Warm and dry. HEAD: Atraumatic. Normocephalic. EYES: Pupils equal and round. No scleral icterus. No injection or drainage. ENT: No nasal bleeding or discharge. Mucous membranes pink and moist. NECK: Trachea midline. No JVD. CARDIOVASCULAR: Regular rate and rhythm. RESPIRATORY: No accessory muscle use. Clear to auscultation. Breath sounds equal bilaterally. GASTROINTESTINAL: Abdomen soft, non-tender, nondistended. MUSCULOSKELETAL: Extremities without clubbing, cyanosis, or edema. No obvious deformities. NEUROLOGICAL: Awake and alert. No obvious cranial nerve deficits. Motor grossly within normal limits. Five out of 5 muscle strength in the arms and legs. Normal speech. PSYCHIATRIC: Appropriate mood and affect; insight and judgment normal. Exam Hand 1 - Other (AREA OF TTP, SKIN INTACT, NO CREPITUS PALPATED) 2 - Other (THENAR ASPECT TTP, BUT WITHOUT DEFORMITY/LACERATION OR CREPITUS) Data Data Last Documented VS Vital Signs Date Time Temp Pulse Resp B/P (MAP) Pulse Ox O2 Delivery O2 Flow Rate FiO2 07/14/17 21:16 98.4 96 16 132/86 (101) 98 Orders Orders Hand, Complete ([id number]) (07/14/17 ) Wrist, Complete ([id number]) (07/14/17 ) [facility] Medical Decision Making Medical Screen Exam Complete: Yes Emergency Medical Condition: Yes Medical Record Reviewed: Yes Differential Diagnosis FRACTURE V DISLOCATION V CONTUSION Narrative Course XRAY OF WRIST AND HAND DO NOT SHOW ANY ACUTE FRACTURE OR DISLOCATION. WILL SPLINT WITH VELCRO WRIST SPLINT Diagnosis Primary Impression: Contusion Patient Instructions: Contusion in Adults (ED), General Instructions Disposition: 01 DISCHARGE HOME Condition: Stable Reinaldo Carpenter MD Jul 14, 2017 21:48
--- NOTE | 2017-07-14 22:03 | RADRPT ---
EXAM DATE/TIME: 07/14/2017 21:43 [facility] COMPARISON: No previous studies available for comparison. INDICATIONS : Left hand pain after falling today. MEDICAL HISTORY : None. SURGICAL HISTORY : Hysterectomy. ENCOUNTER: Initial ACUITY: 1 day PAIN SCORE: 10/10 LOCATION: Left hand. FINDINGS: Three view examination of the left hand demonstrates no soft tissue swelling, dislocation, or fractur e. The carpal bones appear intact. The interphalangeal and metacarpophalangeal joints are intact. Bony mineralization is normal. Small osteochondroma arising from the distal 1st metacarpal. CONCLUSION: No evidence of recent bone injury. Star Roberts MD on July 14, 2017 at 22:00 Board Certified Radiologist. This report was verified electronically.
--- NOTE | 2017-07-14 22:03 | RADRPT ---
EXAM DATE/TIME: 07/14/2017 21:48 [facility] COMPARISON: No previous studies available for comparison. INDICATIONS : Pain in left wrist after falling today. MEDICAL HISTORY : None. SURGICAL HISTORY : Hysterectomy. ENCOUNTER: Initial ACUITY: 1 day PAIN SCORE: 10/10 LOCATION: Left wrist. FINDINGS: Three view examination of the left wrist demonstrates no soft tissue swelling, dislocation, or fractu re. The carpal bones are in normal alignment. The joint spaces are maintained. Bony mineralization is normal. CONCLUSION: No evidence of recent bony injury. Star Roberts MD on July 14, 2017 at 21:59 Board Certified Radiologist. This report was verified electronically.
== END 2017-07-14 22:35 | disposition home or self-care (01) ==
LOC: NEPD 21:14
DX: S60.212A Contusion of left wrist, initial encounter (principal); W10.2XXA Fall (on)(from) incline, initial encounter; Z72.0 Tobacco use
CPT/HCPCS: 73110; 73130; 99283

== ENCOUNTER 2017-10-20 20:40 | Emergency (ER) | payer MEDICAID ==
[~2017-10-20] VITALS: Ht 162.6 cm; Wt 63.0 kg
[~2017-10-20 20:40] MED LIST changes: -TRAM50TA PO
[2017-10-20 20:46] VITALS: BP 124/82; PULSE 93; RESP 18; TEMP 98.2; O2SAT 97
[2017-10-20] MEDS ORDERED: SODIUM CHLOR 0.9% 1000 ML INJ 1,000 ML IV ONE (20:49)
--- NOTE | 2017-10-20 20:54 | PD ---
HPI Chief Complaint: Alcohol intoxication Time Seen by Provider: 20:49 Travel History International Travel<30 days: No Contact w/Intl Traveler<30days: No Traveled to known affect area: No History of Present Illness HPI The patient is a 32-year-old female who presents to the emergency department via EMS for alcohol intoxication and possible seizure. 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 The patient states she tripped and fell, but did not strike her head. The patient denies any loss of consciousness. However, when EMS, the patient possibly had seizure activity. They do note there is no evidence of trauma on the patient. The patient was a GCS of 14 for EMS, was unable to tell them the current year. The patient does have a history of seizures, but is only taken Valium currently, states she has not had a seizure in several years. She denies any headache, neck pain, chest pain, shortness breath, nausea, vomiting, or abdominal pain. She denies any focal deficits. Symptoms are moderate. She does admit to drinking wine tonight, several glasses. She denies any illicit drug use. PFSH Past Medical History Anxiety: Yes Depression: No Diminished Hearing: No Immunizations Current: Yes Menopausal: Yes Past Surgical History Appendectomy: Yes Section: Yes (X 2) Gynecologic Surgery: Yes Hysterectomy: Yes Tonsillectomy: Yes Social History Alcohol Use: Yes (OCCASSIONALLY) Tobacco Use: Yes (1/2 PACK DAILY) Substance Use: No Allergies-Medications (Allergen,Severity, Reaction): Coded Allergies: amoxicillin (Unverified Allergy, Severe, THROAT CLOSES, 10/20/17) Per pt. moxifloxacin (Unverified Allergy, Severe, 10/20/17) Per pt. Uncoded Allergies: NO NARCOTICS PT IN RECOVERY (Allergy, Unknown, 03/11/17) Per pt. Reported Meds & Prescriptions Reported Meds & Active Scripts Active Reported Valium (Diazepam) 10 Mg Tab 10 Mg PO BID PRN Review of Systems Except as stated in HPI: all other systems reviewed are Neg General / Constitutional: No: Fever Eyes: No: Visual changes HENT: No: Headaches, Neck Pain Cardiovascular: No: Chest Pain or Discomfort Respiratory: No: Shortness of Breath Gastrointestinal: No: Nausea, Vomiting, Abdominal Pain Genitourinary: No: Incontinence Neurologic: Positive: Change in Mentation (GCS of 14 according to EMS), Seizures, No: Focal Abnormalities, Headache, Slurred Speech Psychiatric: Positive: Substance Abuse (Admits to drinking several glasses of wine earlier tonight) Physical Exam Narrative GENERAL: Awake, alert, pleasant 32-year-old female who appears her stated age and is in no acute respiratory distress. SKIN: Focused skin assessment warm/dry. Multiple tattoos noted. HEAD: Atraumatic. Normocephalic. No visible areas of ecchymosis or hematomas. EYES: Pupils equal and round. 4 mm bilateral and reactive. The patient is able to see fingers at a distance of 2 feet without difficulty. ENT: No nasal bleeding or discharge. Breath smells of alcohol. NECK: Trachea midline. No JVD. CARDIOVASCULAR: Regular rate and rhythm. No murmur appreciated. RESPIRATORY: No accessory muscle use. Clear to auscultation. Breath sounds equal bilaterally. GASTROINTESTINAL: Abdomen soft, non-tender, nondistended. No rebound tenderness. Back: No tenderness of the thoracic or lumbar vertebrae. MUSCULOSKELETAL: No obvious deformities. No clubbing. No cyanosis. No edema. Full range of motion of the upper and lower extremities. NEUROLOGICAL: Awake and alert. No obvious cranial nerve deficits. Motor grossly within normal limits. Normal speech. Patient is oriented to person, place, and month, but thought the year is 2017 and [facility] was president. Nonfocal on exam. PSYCHIATRIC: Appears intoxicated. Data Data Last Documented VS Vital Signs Date Time Temp Pulse Resp B/P (MAP) Pulse Ox O2 Delivery O2 Flow Rate FiO2 10/20/17 20:46 98.2 93 18 124/82 (96) 97 Orders Orders Complete Blood Count With Diff (10/20/17 20:49) Alcohol (Ethanol) (10/20/17 20:49) Drug Screen, Random Urine (10/20/17 20:49) Electrocardiogram (10/20/17 ) Blood Glucose (10/20/17 20:49) Ecg Monitoring (10/20/17 20:49) Iv Access Insert/Monitor (10/20/17 20:49) Oximetry (10/20/17 20:49) Comprehensive Metabolic Panel (10/20/17 20:49) Sodium Chlor 0.9% 1000 Ml Inj (Ns 1000 M (10/20/17 20:49) Sodium Chloride 0.9% Flush (Ns Flush) (10/20/17 21:00) Urinalysis - C+S If Indicated (10/20/17 20:49) Lactic Acid (10/20/17 20:49) Ed Discharge Order (10/21/17 02:57) Labs Laboratory Tests Test 10/20/17 20:50 10/20/17 20:55 10/20/17 21:05 White Blood Count 8.3 TH/MM3 Red Blood Count 4.72 MIL/MM3 Hemoglobin 15.3 GM/DL Hematocrit 44.1 % Mean Corpuscular Volume 93.4 FL Mean Corpuscular Hemoglobin 32.4 PG Mean Corpuscular Hemoglobin Concent 34.7 % Red Cell Distribution Width 13.2 % Platelet Count 257 TH/MM3 Mean Platelet Volume 8.0 FL Neutrophils (%) (Auto) 42.4 % Lymphocytes (%) (Auto) 47.0 % Monocytes (%) (Auto) 4.5 % Eosinophils (%) (Auto) 5.1 % Basophils (%) (Auto) 1.0 % Neutrophils # (Auto) 3.5 TH/MM3 Lymphocytes # (Auto) 3.9 TH/MM3 Monocytes # (Auto) 0.4 TH/MM3 Eosinophils # (Auto) 0.4 TH/MM3 Basophils # (Auto) 0.1 TH/MM3 CBC Comment DIFF FINAL Differential Comment Blood Urea Nitrogen 11 MG/DL Creatinine 0.76 MG/DL Random Glucose 96 MG/DL Total Protein 8.2 GM/DL Albumin 4.2 GM/DL Calcium Level 8.1 MG/DL Alkaline Phosphatase 96 U/L Aspartate Amino Transf (AST/SGOT) 33 U/L Alanine Aminotransferase (ALT/SGPT) 32 U/L Total Bilirubin 0.4 MG/DL Sodium Level 143 MEQ/L Potassium Level 4.4 MEQ/L Chloride Level 114 MEQ/L Carbon Dioxide Level 21.0 MEQ/L Anion Gap 8 MEQ/L Estimat Glomerular Filtration Rate 87 ML/MIN Ethyl Alcohol Level 311 MG/DL Lactic Acid Level 1.2 mmol/L Urine Color STRAW Urine Turbidity CLEAR Urine pH 5.0 Urine Specific [place] 1.003 Urine Protein NEG mg/dL Urine Glucose (UA) NEG mg/dL Urine Ketones NEG mg/dL Urine Occult Blood NEG Urine Nitrite NEG Urine Bilirubin NEG Urine Urobilinogen LESS THAN 2.0 MG/DL Urine Leukocyte Esterase NEG Urine WBC LESS THAN 1 /hpf Urine Bacteria RARE /hpf Microscopic Urinalysis Comment CULT NOT INDICATED Urine Opiates Screen NEG Urine Barbiturates Screen NEG Urine Amphetamines Screen NEG Urine Benzodiazepines Screen POS Urine Cocaine Screen NEG Urine Cannabinoids Screen NEG MDM Medical Decision Making Medical Screen Exam Complete: Yes Emergency Medical Condition: Yes Medical Record Reviewed: Yes Interpretation(s) EKG reveals normal sinus rhythm with a rate 88. No ischemic changes or ectopy noted. Laboratory Tests Test 10/20/17 20:50 10/20/17 20:55 10/20/17 21:05 White Blood Count 8.3 TH/MM3 Red Blood Count 4.72 MIL/MM3 Hemoglobin 15.3 GM/DL Hematocrit 44.1 % Mean Corpuscular Volume 93.4 FL Mean Corpuscular Hemoglobin 32.4 PG Mean Corpuscular Hemoglobin Concent 34.7 % Red Cell Distribution Width 13.2 % Platelet Count 257 TH/MM3 Mean Platelet Volume 8.0 FL Neutrophils (%) (Auto) 42.4 % Lymphocytes (%) (Auto) 47.0 % Monocytes (%) (Auto) 4.5 % Eosinophils (%) (Auto) 5.1 % Basophils (%) (Auto) 1.0 % Neutrophils # (Auto) 3.5 TH/MM3 Lymphocytes # (Auto) 3.9 TH/MM3 Monocytes # (Auto) 0.4 TH/MM3 Eosinophils # (Auto) 0.4 TH/MM3 Basophils # (Auto) 0.1 TH/MM3 CBC Comment DIFF FINAL Differential Comment Blood Urea Nitrogen 11 MG/DL Creatinine 0.76 MG/DL Random Glucose 96 MG/DL Total Protein 8.2 GM/DL Albumin 4.2 GM/DL Calcium Level 8.1 MG/DL Alkaline Phosphatase 96 U/L Aspartate Amino Transf (AST/SGOT) 33 U/L Alanine Aminotransferase (ALT/SGPT) 32 U/L Total Bilirubin 0.4 MG/DL Sodium Level 143 MEQ/L Potassium Level 4.4 MEQ/L Chloride Level 114 MEQ/L Carbon Dioxide Level 21.0 MEQ/L Anion Gap 8 MEQ/L Estimat Glomerular Filtration Rate 87 ML/MIN Ethyl Alcohol Level 311 MG/DL Lactic Acid Level 1.2 mmol/L Urine Color STRAW Urine Turbidity CLEAR Urine pH 5.0 Urine Specific [place] 1.003 Urine Protein NEG mg/dL Urine Glucose (UA) NEG mg/dL Urine Ketones NEG mg/dL Urine Occult Blood NEG Urine Nitrite NEG Urine Bilirubin NEG Urine Urobilinogen LESS THAN 2.0 MG/DL Urine Leukocyte Esterase NEG Urine WBC LESS THAN 1 /hpf Urine Bacteria RARE /hpf Microscopic Urinalysis Comment CULT NOT INDICATED Urine Opiates Screen NEG Urine Barbiturates Screen NEG Urine Amphetamines Screen NEG Urine Benzodiazepines Screen POS Urine Cocaine Screen NEG Urine Cannabinoids Screen NEG Differential Diagnosis Differential diagnosis includes alcohol intoxication, alcohol abuse, seizure, hyponatremia, hypocalcemia, electrolyte normality, encephalopathy, closed head injury, intra-cranial hemorrhage. Narrative Course IV was established, labs are drawn and sent, and the patient was placed on cardiac telemetry monitoring and continuous pulse oximetry monitoring. EKG was ordered and interpreted. Alcohol level was sent to lab. The patient was administered IV fluids. Labs are unremarkable except for tox screen positive for benzodiazepines and disposition home. The patient's alcohol level was elevated at 311. Tox screen is positive for benzodiazepines. The patient was reevaluated, was ambulatory and alert and oriented 4. The patient had a right at bedside, was subsequently discharged home. She is advised to decrease alcohol intake. Diagnosis Primary Impression: Alcohol abuse with intoxication Patient Instructions: General Instructions Additional Instructions: Decrease alcohol intake. Follow-up with your primary physician. Return if symptoms worsen or progress. Med/Other Pt SpecificInfo: No Change to Meds Disposition: 01 DISCHARGE HOME Condition: Stable Richard Akers MD October 20, 2017 20:54
[2017-10-20] MEDS ORDERED: SODIUM CHLORIDE 0.9% FLUSH 10 ML FLUSH IVF PRN (21:00)
[2017-10-20 21:30] LABS: AUTOMATED NEUTROPHIL # 3.5 TH/MM3 (1.8-7.7); BASOPHIL # 0.1 TH/MM3 (0-0.2); EOSINOPHIL # 0.4 TH/MM3 (0-0.4); EOSINOPHIL % 5.1 % (0.0-4.0); HEMATOCRIT 44.1 % (35.0-46.0); HEMOGLOBIN 15.3 GM/DL (11.6-15.3); LYMPHOCYTE # 3.9 TH/MM3 (1.0-4.8); MEAN CELL VOLUME 93.4 FL (80.0-100.0); MEAN CORPUSCULAR HEMOGLOBIN 32.4 PG (27.0-34.0); MEAN CORPUSCULAR HGB CONC 34.7 % (32.0-36.0); MONO % 4.5 % (0.0-8.0); MONOCYTE # 0.4 TH/MM3 (0-0.9); NEUT % 42.4 % (16.0-70.0); PLATELET COUNT 257 TH/MM3 (150-450); RED BLOOD COUNT 4.72 MIL/MM3 (4.00-5.30); RED CELL DISTRIBUTION WIDTH 13.2 % (11.6-17.2); WHITE BLOOD COUNT 8.3 TH/MM3 (4.0-11.0)
[2017-10-20 21:35] LABS: BILIRUBIN, URINE NEG (NEG); BLOOD, URINE NEG (NEG); GLUCOSE,URINE NEG (NEG); KETONE, URINE NEG (NEG); NITRITE,URINE NEG (NEG); URINE LEUKOCYTE ESTERASE NEG (NEG)
[2017-10-20 21:43] LABS: ALT (GPT) 32 U/L (10-53)
[2017-10-20 21:46] LABS: ALBUMIN 4.2 GM/DL (3.4-5.0); AST (GOT) 33 U/L (15-37); BLOOD UREA NITROGEN 11 MG/DL (7-18); CALCIUM 8.1 MG/DL (8.5-10.1); CHLORIDE 114 MEQ/L (98-107); CREATININE 0.76 MG/DL (0.50-1.00); GLOMERULAR FILTRATION RATE 87 ML/MIN (>89); GLUCOSE,RANDOM 96 MG/DL (74-106); SODIUM (NA) 143 MEQ/L (136-145)
[2017-10-20 21:47] LABS: ALKALINE PHOSPHATASE 96 U/L (45-117); TOTAL BILIRUBIN ADULT 0.4 MG/DL (0.2-1.0); TOTAL PROTEIN 8.2 GM/DL (6.4-8.2)
[2017-10-20 21:56] LABS: BACTERIA, URINE RARE /hpf; URINE COLOR STRAW (YELLW/STRAW)
--- NOTE | 2017-10-21 21:09 | EKG ---
Date Performed: 10/20/2017 Time Performed: 20:52:14 PTAGE: 32 years EKG: Sinus rhythm POSSIBLE LEFT ATRIAL ENLARGEMENT BORDERLINE ECG PREVIOUS TRACING : 03/18/2013 07.31 Since the previous tracing, no significant change noted DOCTOR: Dom Ching Interpretating Date/Time 10/21/2017 21:08:03
== END 2017-10-21 01:20 | disposition home or self-care (01) ==
LOC: NEPC 20:40
DX: F10.129 Alcohol abuse with intoxication, unspecified (principal); R56.9 Unspecified convulsions; R94.31 Abnormal electrocardiogram [ECG] [EKG]; Z72.0 Tobacco use; W01.0XXA Fall on same level from slipping, tripping and stumbling without subsequent striking against object, initial encounter; Z88.0 Allergy status to penicillin
CPT/HCPCS: 80053; 80307; 81001; 83605; 85025; 93005; 96360; 99284; J7030